=== PATIENT | male | born 1965 | race Caucasian/White ===

== ENCOUNTER 2019-11-06 06:52 | Emergency (ER) | payer OTHER, SELFPAY ==
[2019-11-06 06:57] VITALS: BP 105/61; PULSE 76; RESP 18; TEMP 36.7; O2SAT 100
--- NOTE | 2019-11-06 07:05 | ED.GENADUL_ITS ---
Discharge Plan Disposition Patient Disposition: HOME Condition: Good Discharge Details Chief Complaint: Nk/Back Pain Clinical Impression: Back pain Primary Care Provider: None,None ED Provider: Elías Reagan Home Meds and New Rx's Prescriptions: New cyclobenzaprine 10 mg tablet 10 mg PO TID Qty: 14 RF: 0 prednisone 50 MG tablet 50 mg PO DAILY Qty: 5 RF: 0 lidocaine [Lidoderm] 1 PATCH patch 1 patch Topical Q24H Qty: 4 RF: 0 Discharge Instructions Instructions: Back Pain (ED) Additional Instructions: At this time your signs and symptoms are clinically consistent with a back sprain. This can cause significant pain and take a fair bit of time to heal. I expect 1 to 2 months for potential resolution. In the meantime do not lift anything greater than 5 pounds for the next 2 weeks. Avoid any significant vigorous physical activity. Perform easy gentle regular activities at home without any significant bending or lifting. Please take the steroids as directed. You have been given a prescription for Lidoderm patch. If your insurance does not cover this you can get [id number] Lidoderm patches at 4% which are almost just as effective. Please take the Flexeril as directed but do not take it when driving or operating any vehicles or heavy machinery, swimming, taking long baths, or operating firearms. Please use a heating pad as often as possible on your back. Perform daily gentle stretches on your back. Please continue to take the Tylenol and Motrin. You can take 1000 mg of Tylenol every 6 hours and 600 mg of ibuprofen every 6 hours. If you notice any worsening of your symptoms, or any new symptoms such as vomiting, diarrhea, fever, chills, shortness of breath, chest pain, numbness or tingling in your groin or legs, weakness in your legs, loss of control for your bowels or bladder, or fainting , please return immediately to the emergency department for reevaluation. Please follow up with your primary care provider as soon as possible for reassessment and reevaluation. As always, it was a pleasure participating in your medical care today. Discharge Data Discharge Date/Time-TO BE ENTERED AT DEPARTURE: 11/06/19 08:10 Medical Decision Making 54-year-old male with a past medical history of previous Lyme disease presents today for evaluation of back pain. Patient states that 4 to 5 days ago he had been doing a significant amount of moving and lifting of various heavy o bjects, felt that he twisted lifted in a funny atypical fashion developed some mild right-sided back pain. In spite of taking Tylenol and Motrin his pain continued and gradually worsened, described as an ache which then radiated down to his right buttock and his right leg. He denies any significant numbness or tingling, but does admit to what he feels is mild weakness in his right lower extremity but he is still able to ambulate. He denies previous injury to his back but does admit to a history of previous left-sided back pain in the past. Patient denies any saddle anesthesia, numbness or tingling in the groin, change in sensation when wiping. Patient denies any change in sensation during sexual intercourse, difficulty achieving or maintaining an erection or ejaculation, bowel or bladder incontinence, leakage, or retention. Patient denies any significant weakness in the lower extremities, atypical falls or imbalance. Patient denies any IV or illicit drug use. Physical exam demonstrates notable right paraspinal muscle spasm with mild reproducible tenderness on palpation there. No midline tenderness whatsoever. Signs and symptoms are clinically inconsistent with cauda equina syndrome at this time, and clinically consistent with right-sided musculoskeletal spasm. At this time there is no indication for emergent imaging, I did discuss imaging options with the patient though, he too would like to hold off on any additional imaging. We will give steroid, Lidoderm patch, Toradol Flexeril. We will monitor closely expectant discharge. 7:41 AM Patient has had mild improvement of his symptoms, we will add Valium. Patient will be signed out to my colleague for recheck, otherwise patient continues to look clinically well, with no signs of acute cord compression, or signs or symptoms warranting emergent imaging. No indication for admission. Signs and symptoms at this time are clinically consistent with a musculoskeletal back strain. 8 AM Patient had complete resolution of his pain and is asking to go home. Repeat assessment continues to show no signs of cauda equina syndrome or other concerning etiologies. Signs and symptoms at this time clinically consistent with musculoskeletal back strain. Discussed red flags for which to return. I have extensively reviewed the treatment plan and discharge instructions with the patient. I have addressed all patient concerns at this time. The patient was made aware of what symptoms to monitor for that would warrant a return to the emergency department. Discussed the plan with the patient, they demonstrate jerilyn bal understanding and agreement with our assessment and plan at this time. HPI General Date/Time Provider Initiated Documentation: 11/06/19 06:53 . HPI Narrative: 54-year-old male with a past medical history of previous Lyme disease presents today for evaluation of back pain. Patient states that 4 to 5 days ago he had been doing a significant amount of moving and lifting of various heavy objects, felt that he twisted lifted in a funny atypical fashion developed some mild right-sided back pain. In spite of taking Tylenol and Motrin his pain continued and gradually worsened, described as an ache which then radiated down to his right buttock and his right leg. He denies any significant numbness or tingling, but does admit to what he feels is mild weakness in his right lower extremity but he is still able to ambulate. He denies previous injury to his back but does admit to a history of previous left-sided back pain in the past. Patient denies any saddle anesthesia, numbness or tingling in the groin, change in sensation when wiping. Patient denies any change in sensation during sexual intercourse, difficulty achieving or maintaining an erection or ejaculation, bowel or bladder incontinence, leakage, or retention. Patient denies any significant weakness in the lower extremities, atypical falls or imbalance. Patient denies any IV or illicit drug use. Related Data Home Medications Medication Instructions Recorded Confirmed cyclobenzaprine 10 mg PO TID #14 tab 11/06/19 lidocaine [Lidoderm] 1 patch TOPICAL Q24H #4 patch 11/06/19 prednisone 50 mg PO DAILY #5 tab 11/06/19 Previous Rx's Medication Instructions Recorded cyclobenzaprine 10 mg PO TID #14 tab 11/06/19 lidocaine [Lidoderm] 1 patch TOPICAL Q24H #4 patch 11/06/19 prednisone 50 mg PO DAILY #5 tab 11/06/19 Allergies Allergy/AdvReac Type Severity Reaction Status Date / Time No Known Allergies Allergy Unverified 11/06/19 07:06 General Stated Complaint: Nk/Back Pain DEON: 4 Review of Systems All systems reviewed & are unremarkable except as noted in HPI and below PFSH Social History Smoking/Tobacco Use Status: Never Alcohol Intake: never Drug use: Never Do you feel safe at home: Yes Do you feel safe in your relationship?: Yes Exam Narrative Exam Narrative: 1.Const: Well-nourished, Well-developed, appearing stated age 2.Eyes: PERRL, no conjunctival injection, and symmetrical lids. 3.ENT: Atraumatic external nose and ears. Moist MM. Neck: Symmetric, trachea midline, No thyromegaly. 4.CVS: +S1/S2, No murmurs or gallops. Peripheral pulses 2+ and equal in all extremities. Brisk capillary refill in all extremities. 5.RESP: Unlabored respiratory effort. Clear to auscultation bilaterally. No wheezes rales or rhonchi 6.GI: Soft, Nontender/Nondistended, No hepatosplenomegaly. No guarding or rebound. 7.MSK: Normocephalic/Atraumatic, Extremities w/o deformity or ttp No cyanosis or clubbing, Normal movement of all extremities. No midline tenderness to palpation over the CTLS spine. Notable right paraspinal spasm, with well associated rate lower lumbar paraspinal pain. Normal ROM in flexion, extension, side bend, and rotation. Patient has +5 out of 5 strength in the lower extremities in dorsiflexion and plantarflexion, knee flexion and extension, hip flexion and extension. The right hip is minimally less strong than the left in regards to hip flexion but both are still clear 5 out of 5. Normal strength for dorsiflexion and plantar flexion of the great toe bilaterally. There is +2 over 2 dorsalis pedis pulses bilaterally. There is normal sensation to the skin with light touch at the foot, knee, and hip. Normal saddle sensation. Good sensation over the deep sural nerve area bilaterally. Rectal exam demonstrates good rectal tone, good perirectal sensation. Reflexes are +2 over 4 in the patellar reflex bilaterally. 8.Skin: Warm, Dry. No rashes or lesions. 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 Sensation grossly intact, no focal neurologic deficits. 10.Psych: (AAO) x3. Appropriate mood and affect Course Vital Signs Vital signs: Vital Signs Temperature 36.7 C 11/06/19 06:57 Pulse 76 11/06/19 06:57 Respiratory Rate 18 11/06/19 06:57 Blood Pressure 105/61 11/06/19 06:57 Pulse Oximetry 100 11/06/19 06:57 Temperature 36.7 C 11/06/19 06:57 Temperature Source Temporal Artery Scan 11/06/19 06:57 Pulse 76 11/06/19 06:57 Respiratory Rate 18 11/06/19 06:57 Blood Pressure 105/61 11/06/19 06:57 Blood Pressure Position Sitting 11/06/19 06:57 Pulse Oximetry 100 11/06/19 06:57 Oxygen Delivery Method Room Air 11/06/19 06:57 Oxygen Flow Rate 0 11/06/19 06:57 Pain Level 8 11/06/19 06:57 Sign Out Sign Out Data: Sign Out Comment: Recheck at 815/820 after Valium administration Last updated by Elías Reagan DO at 11/06/19 07:42
[2019-11-06] MEDS: Lidocaine 5% Patch 1 PATCH TP (07:13)
[2019-11-06] MEDS: Ketorolac 30 MG/ML VIAL IM (07:13)
[2019-11-06] MEDS: Acetaminophen 500 MG TAB 1000 MG PO (07:14)
[2019-11-06] MEDS: predniSONE 20 MG TAB 60 MG PO (07:14)
[2019-11-06] MEDS: Cyclobenzaprine 10 MG TAB PO (07:14)
[2019-11-06] MEDS: diazePAM 10 MG/2 ML SYR IM (07:45)
== END 2019-11-06 08:10 | disposition home or self-care (01) ==
PROVIDERS: Emergency Provider Student in an Organized Health Care Education/Training Program
DX: S33.5XXA Sprain of ligaments of lumbar spine, initial encounter (principal); X50.0XXA Overexertion from strenuous movement or load, initial encounter
CPT/HCPCS: 96372; 99284; J1885; J3360; J7512

== ENCOUNTER 2019-11-17 11:33 | Emergency (ER) | payer OTHER, SELFPAY ==
[2019-11-17 11:37] VITALS: BP 107/67; PULSE 80; TEMP 36.5; O2SAT 100
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
[2019-11-17] MEDS: Ketorolac 60 MG/2 ML VIAL IM (12:22)
== END 2019-11-17 12:55 | disposition home or self-care (01) ==
PROVIDERS: Emergency Provider Physician Assistant
DX: M54.5 Low back pain (principal)
CPT/HCPCS: 96372; 99284; 99283; J1885

== ENCOUNTER 2020-12-07 01:58 | Outpatient (CLI) | payer MEDICARE, SELFPAY ==
[2020-12-07 13:26] LABS: HCT 39.3 % (40.0-50.0); HGB 13.3 g/dL (13.5-17.5); MCH 30.4 pg (27.0-33.0); MCHC 33.8 % (32.0-36.0); MCV 89.9 fL (80-95); Platelet Count 242 10^3/uL (130-400); RBC 4.37 10^6/uL (4.36-5.78); RDW 12.8 % (11.8-14.1); RDW-SD 42.5 fL; WBC 5.33 10^3/uL (4.4-10.8)
[2020-12-07 14:03] LABS: Magnesium 1.9 mg/dL (1.8-2.4)
[2020-12-07 14:36] LABS: ALT 32 U/L (16-63); AST 16 U/L (15-37); Albumin 4.1 g/dL (3.4-5.0); Alkaline Phosphatase 79 U/L (46-116); BUN 18 mg/dL (7-18); Bilirubin, Total 0.5 mg/dL (0.2-1.0); CREATININE 1.1 mg/dL (0.70-1.30); Calcium 9.1 mg/dL (8.5-10.1); Chloride 107 mmol/L (98-107); Ferritin 385 ng/mL (26-388); Glucose 96 mg/dL (74-106); Potassium 4.6 mmol/L (3.5-5.1); Sodium 142 mmol/L (136-145); TSH 0.45 uIU/mL (0.36-3.74); Vitamin B12 503 pg/mL (193-986)
[2020-12-07 14:52] LABS: C-Reactive Protein 0.28 mg/dL (0.0-0.3); FREE T4 0.73 ng/dL (0.76-1.46)
[2020-12-07 22:33] LABS: T3, Total 124 ng/dL (97-169)
[2020-12-09 00:58] LABS: Vitamin D 25 Total 44.7 ng/mL (30-100)
[2020-12-15 10:12] LABS: Testosterone, Free 7.73 ng/dL (3.87-14.7); Testosterone, Total 368 ng/dL (240-950)
== END 2020-12-07 01:59 | disposition home or self-care (01) ==
DX: F31.9 Bipolar disorder, unspecified (principal); F63.81 Intermittent explosive disorder; G31.84 Mild cognitive impairment of uncertain or unknown etiology
CPT/HCPCS: 36415; 80053; 82306; 84402; 84403; 85027; 82607; 82728; 83735; 84439; 84443; 84480; 86140

== ENCOUNTER 2020-12-12 08:36 | Emergency (ER) | payer MEDICARE, SELFPAY ==
[2020-12-12] VITALS (20 sets, daily range): BP systolic 113–134; BP diastolic 65–81; PULSE 56–81; RESP 8–19; TEMP 36.5; O2SAT 97–100
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
[2020-12-12] MEDS: Lidocaine 5% Patch 1 PATCH TP (09:25)
[2020-12-12] MEDS: oxyCODONE 5 MG TAB PO (09:25)
[2020-12-12 09:42] LABS: Abs Immature Grans 0.01 10^3/uL (0.0-0.06); Absolute Basophil Count 0.07 10^3/uL (0.0-0.2); Absolute Eosinophil Count 0.13 10^3/uL (0.0-0.7); Absolute Lymphocyte Count 1.52 10^3/uL (1.2-3.4); Absolute Monocyte Count 0.41 10^3/uL (0.1-0.8); Absolute Neutrophil Count 3.84 10^3/uL (1.2-6.7); Basophils % 1.2; Eosinophils % 2.2; HCT 41.7 % (40.0-50.0); Immature Grans % 0.2; Lymphocytes % 25.4; MCH 30.2 pg (27.0-33.0); MCHC 33.6 % (32.0-36.0); MCV 90.1 fL (80-95); MPV 9.2 fL (8.0-11.0); Monocytes % 6.9; Neutrophils % 64.1; Nucleated RBC 0 %; Platelet Count 267 10^3/uL (130-400); RBC 4.63 10^6/uL (4.36-5.78); RDW 12.7 % (11.8-14.1); WBC 5.98 10^3/uL (4.4-10.8)
[2020-12-12] MEDS: Omnipaque 350 MG/ML 100 ML BTL IJ (10:00)
[2020-12-12] MEDS: Normal Saline Flush 10 ML SYR IVP (10:01)
[2020-12-12 10:14] LABS: ALT 35 U/L (16-63); AST 22 U/L (15-37); Albumin 4.1 g/dL (3.4-5.0); Alkaline Phosphatase 84 U/L (46-116); Anion Gap 6.7 mmol/L (3-11); BUN 23 mg/dL (7-18); Bilirubin, Total 0.2 mg/dL (0.2-1.0); CO2 27.3 mmol/L (21.0-32.0); CREATININE 1.1 mg/dL (0.70-1.30); Calcium 9.1 mg/dL (8.5-10.1); Chloride 107 mmol/L (98-107); Glucose 106 mg/dL (74-106); Potassium 4.7 mmol/L (3.5-5.1); Sodium 141 mmol/L (136-145); Total Protein 7.6 g/dL (6.4-8.2)
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
== END 2020-12-12 10:41 | disposition home or self-care (01) ==
PROVIDERS: Emergency Provider Student in an Organized Health Care Education/Training Program
DX: R07.89 Other chest pain (principal); S22.22XA Fracture of body of sternum, initial encounter for closed fracture; V89.2XXA Person injured in unspecified motor-vehicle accident, traffic, initial encounter
CPT/HCPCS: 36415; 80053; 99284; 71260; 85025; J3490

== ENCOUNTER 2022-12-14 09:12 | Outpatient (CLI) | payer MEDICARE, SELFPAY ==
--- NOTE | 2022-12-14 08:45 | DI.RAD_ITS ---
Exam(s) XR WRIST LT COMPLETE EXAM: XR WRIST LT COMPLETE CLINICAL HISTORY: left wrist pain. TECHNIQUE: 2D digital imaging was performed of the left wrist. Four images were obtained. Scaphoid , PA, oblique and lateral views were obtained. COMPARISON: No exams were available for comparison FINDINGS: BONES: No acute fracture is present. No bony destructive lesion is seen. There is a bone island in th e distal scaphoid. JOINTS: The carpal bones are normally aligned. The joint spaces are well maintained. SOFT TISSUE: Normal. IMPRESSION: No acute abnormality. DATA REPOSITORY: RADIATION DOSE DELIVERED:
== END 2022-12-14 09:13 | disposition home or self-care (01) ==
LOC: DIORS 09:12
PROVIDERS: Referring Provider Physical Therapist; Visit Provider Physician Assistant
DX: M25.532 Pain in left wrist (principal); M65.4 Radial styloid tenosynovitis [de Quervain]
CPT/HCPCS: 99213; 73110

== ENCOUNTER → 2023-01-01 03:30 | Outpatient (CLI) | payer MEDICARE, SELFPAY ==
--- NOTE | 2023-01-01 08:10 | DI.MRI_ITS ---
Exam(s) MR UPPER JOINT LT WO EXAM: MR UPPER JOINT LT WO CLINICAL HISTORY: LT WRIST PAIN, M25.532. TECHNIQUE: Multiplanar multisequence MRI was performed. COMPARISON: 14 December 2022 FINDINGS: Exam somewhat limited by motion. BONES: There is no fracture or contusion pattern. Focal area of sclerosis in the navicular is consi stent with bone island. Degenerative changes lateral aspect of navicular with some marrow edema.. JOINTS: The radiocarpal joint is unremarkable. The carpal joints are unremarkable. Mild degenerativ e changes navicular trapezium joint. Mild dorsal tilt of the lunate TENDONS: Tendons appear intact throughout. No evidence of tear or surrounding fluid. MUSCLES: Unremarkable. MEDIAN NERVE: Unremarkable on this noncontrast examination. SOFT TISSUES: Unremarkable. TRIANGULAR FIBROCARTILAGE: Not well seen. IMPRESSION: Mild edema in the navicular. The findings could be degenerative. Area of sclerosis in the distal po le likely represents a bone island. No tendon or soft tissue abnormality. DATA REPOSITORY: CONTRAST MATERIAL: Noncontrast
== END ==
PROVIDERS: Visit Provider Student in an Organized Health Care Education/Training Program
DX: M25.532 Pain in left wrist (principal)
CPT/HCPCS: 73221

== ENCOUNTER → 2023-04-17 03:17 | Outpatient (CLI) | payer MEDICARE, SELFPAY ==
--- NOTE | 2023-04-17 09:10 | DI.CT_ITS ---
Exam(s) CT UPPER EXTREMITY LT WO EXAM: CT UPPER EXTREMITY LT WO CLINICAL HISTORY: PAIN LT WRIST,M25.532,BONE ISLAND,m89.8x9. TECHNIQUE: Imaging Protocol: Axial computed tomography images with coronal and sagittal reformatted images were created and reviewed. COMPARISON: CR XR WRIST LT COMPLETE from 12/14/2022 FINDINGS: Bones: The osseous structures and articular surfaces are intact. Bony alignment is satisfactory. N o cellulitic or osteomyelitic changes are identified. There is no evidence of joint space narrowing or cystic degeneration seen. There is a well-circumscribed sclerotic focus in the scaphoid most sugge stive of a benign lesion. This corresponds to the finding seen on the x-ray and MRI of the wrist pre viously. No other lytic or sclerotic lesions are seen in the bones. Soft Tissues: The visualized tendons and muscles appear grossly unremarkable. No soft tissue mass is appreciated. No focal fluid collection is seen to suggest an abscess. No muscular fatty atrophy is appreciated. IMPRESSION: 1. 6 mm well-circumscribed sclerotic focus in the scaphoid. No associated bony destruction or soft t issue mass is appreciated. This suggest a benign lesion. 2. Otherwise unremarkable examination of the wrist. No acute fracture or dislocation. RADIATION DOSE DELIVERED: 95.56mGy.cm Total DLP 95.56mGy.cm Total DLP DATA REPOSITORY: All CT scans at this facility are submitted to the National Radiology Data Registry (NRDR) Dose Index Registry (DIR) with the [employer] (ACR). RADIATION OPTIMIZATION: All CT scans at this facility use at least one of these dose optimization te chniques: automated exposure control; mA and/or kV adjustment per patient size (includes targeted exa ms where dose is matched to clinical indication); or iterative reconstruction.
== END ==
PROVIDERS: Visit Provider Student in an Organized Health Care Education/Training Program
DX: M89.8X8 Other specified disorders of bone, other site (principal)
CPT/HCPCS: 73200

== ENCOUNTER 2023-05-09 02:55 | Outpatient (CLI) | payer MEDICARE, SELFPAY ==
[2023-05-09 15:23] LABS: Abs Immature Grans 0.03 10^3/uL (0.0-0.06); Absolute Basophil Count 0.11 10^3/uL (0.0-0.2); Absolute Eosinophil Count 0.22 10^3/uL (0.0-0.7); Absolute Lymphocyte Count 2.37 10^3/uL (1.2-3.4); Absolute Monocyte Count 0.73 10^3/uL (0.1-0.8); Absolute Neutrophil Count 4.41 10^3/uL (1.2-6.7); Basophils % 1.4; Eosinophils % 2.8; HGB 13.6 g/dL (13.5-17.5); Immature Grans % 0.4; Lymphocytes % 30.1; MCH 29.8 pg (27.0-33.0); MCV 88 fL (80-95); MPV 9.3 fL (8.0-11.0); Monocytes % 9.3; Platelet Count 295 10^3/uL (130-400); RBC 4.56 10^6/uL (4.36-5.78); RDW 13.3 % (11.8-14.1); RDW-SD 42.9 fL; WBC 7.87 10^3/uL (4.4-10.8)
[2023-05-09 16:25] LABS: Lithium 0.3 mmol/l (0.6-1.2)
[2023-05-09 16:37] LABS: Anion Gap 12.7 mmol/L (3-11); BUN 20 mg/dL (7-18); CO2 22.3 mmol/L (21.0-32.0); Calcium 9.3 mg/dL (8.5-10.1); Chloride 108 mmol/L (98-107); Glucose 107 mg/dL (74-106); Potassium 4.2 mmol/L (3.5-5.1); Sodium 143 mmol/L (136-145); TSH (W/Ref FT4) 1.09 uIU/mL (0.36-3.74)
== END 2023-05-09 02:56 | disposition home or self-care (01) ==
DX: F31.9 Bipolar disorder, unspecified (principal); Z79.899 Other long term (current) drug therapy
CPT/HCPCS: 36415; 80048; 80178; 84443; 85025

== ENCOUNTER 2024-01-14 02:38 | Outpatient (CLI) | payer MEDICARE, SELFPAY ==
[2024-01-14 14:01] LABS: Abs Immature Grans 0.04 10^3/uL (0.0-0.06); Absolute Basophil Count 0.11 10^3/uL (0.0-0.2); Absolute Eosinophil Count 0.16 10^3/uL (0.0-0.7); Absolute Lymphocyte Count 2.14 10^3/uL (1.2-3.4); Absolute Monocyte Count 0.62 10^3/uL (0.1-0.8); Absolute Neutrophil Count 4.16 10^3/uL (1.2-6.7); Basophils % 1.5 %; Eosinophils % 2.2 %; HCT 40.8 % (40.0-50.0); HGB 13.5 g/dL (13.5-17.5); Immature Grans % 0.6 %; Lymphocytes % 29.6 %; MCHC 33.1 % (32.0-36.0); MCV 91 fL (80-95); MPV 9.3 fL (8.0-11.0); Monocytes % 8.6 %; Neutrophils % 57.5 %; Platelet Count 277 10^3/uL (130-400); RDW 13.4 % (11.8-14.1); RDW-SD 44.9 fL; WBC 7.23 10^3/uL (4.4-10.8)
[2024-01-14 14:59] LABS: Lithium 0.3 mmol/L (0.6-1.2)
[2024-01-14 15:13] LABS: Anion Gap 7.7 mmol/L (3-11); BUN 19 mg/dL (7-18); CO2 24.3 mmol/L (21.0-32.0); CREATININE 1.2 mg/dL (0.70-1.30); Chloride 108 mmol/L (98-107); Estimated GFR 69.66 (mL/min/1.73m2); Glucose 118 mg/dL (74-106); Potassium 3.9 mmol/L (3.5-5.1); Sodium 140 mmol/L (136-145); TSH (W/Ref FT4) 0.94 uIU/mL (0.36-3.74)
== END 2024-01-14 02:39 | disposition home or self-care (01) ==
PROVIDERS: Visit Provider Psychiatry & Neurology Psychiatry
DX: F31.9 Bipolar disorder, unspecified (principal); Z51.81 Encounter for therapeutic drug level monitoring
CPT/HCPCS: 36415; 80048; 80178; 84443; 85025

== ENCOUNTER 2024-12-17 09:18 | Emergency (ER) | payer MEDICARE, SELFPAY ==
[2024-12-17] VITALS (34 sets, daily range): BP systolic 123–150; BP diastolic 73–97; PULSE 66–103; RESP 10–31; TEMP 36.4; O2SAT 96–100
--- NOTE | 2024-12-17 09:15 | RT.EKG_ITS ---
APPROVED REPORT Exam: Resting ECG Reason for Exam: stroke Patient Location: E HR:76 bpm ECG Measurements Heart Rate 76 AXIS WV 156 P 78 QRSd 89 QRS 73 QT 387 T 45 QTc 436 Conclusion Sinus rhythm...normal P axis, V-rate 60- 99 Physician: No STEMI
[2024-12-17] MEDS: Normal Saline Flush 10 ML SYR IVP (09:23)
[2024-12-17] MEDS: Omnipaque 350 MG/ML 100 ML BTL IJ (09:24)
[2024-12-17] MEDS: Normal Saline - Diluent 50 ML VIAL IJ (09:24)
--- NOTE | 2024-12-17 09:29 | ED.GENADUL_ITS ---
Discharge Plan Disposition Patient Disposition: Transfer-Acute Inpatient Care Specific Acute Inpt Facility: [facility] Condition: Critical Discharge Details Clinical Impression: Stroke, Left-sided weakness Primary Care Provider: Unknown,Unknown ED Provider: Elías Reagan Home Meds and New Rx's Prescriptions: No Action mirtazapine 30 mg tablet 30 mg PO QHS lorazepam 1 mg tablet 1 mg PO BID Patient Comments: TAKE ONE TABLET BY MOUTH TWICE A DAY lithium carbonate 150 mg capsule 150 mg PO DAILY Patient Comments: TAKE ONE CAPSULE BY MOUTH EVERY DAY FOR MOOD HPI General Date/Time Provider Initiated Documentation: 12/17/24 09:29 . HPI Narrative: This is a 59-year-old male with no significant past medical history except for mood disorder, presents today for evaluation of stroke. Patient awoke at 740 5 to 8 AM. He got up and had been functioning normally per his . And then at 8:30 AM he began calling for her. When she went over he had complete left-sided deficit with difficulty speaking, facial droop on the left, and complete paralysis of the left upper and lower extremity. EMS was called, blood sugar was normal, he was brought to the ER for further assessment. By the time he arrived facial paralysis was slightly improved as well as his mild dysarthria. However the left-sided upper and lower extremity deficit continued unchanged. Patient does not have a history of stroke or heart attack in the past. He does not smoke. No other complaints at this time. No history of bleed or hemorrhage. No history of aneurysm. No chest pain or shortness of breath or falls or trauma. Related Data Home Medications ?Medication ?Instructions ?Recorded ?Confirmed mirtazapine 30 mg tablet 30 mg PO QHS 12/14/22 lithium carbonate 150 mg capsule 150 mg PO DAILY 12/1712/17/24 lorazepam 1 mg tablet 1 mg PO BID 12/17/24 5 Allergies Allergy/AdvReac Type Severity Reaction Status Date / Time No Known Allergies Allergy Unverified 12/17/24 09:39 General DEON: 3 Exam Narrative Exam Narrative: 1.Const: Well-nourished, Well-developed, appearing stated age 2.Eyes: PERRL, no conjunctival injection, and symmetrical lids. 3.ENT: Atraumatic external nose and ears. Moist MM. Neck: Symmetric, trachea midline, No thyromegaly. 4.CVS: +S1/S2, Peripheral pulses 2+ and equal in all extremities. Brisk capillary refill in all extremities. 5.RESP: Unlabored respiratory effort. Clear to auscultation bilaterally. No wheezes rales or rhonchi 6.GI: Soft, Nontender/Nondistended, No hepatosplenomegaly. No guarding or rebound. 7.MSK: Normocephalic/Atraumatic, Extremities w/o deformity or ttp No cyanosis or clubbing, Normal movement of all extremities 8.Skin: Warm, Dry. No rashes or lesions. 9.Neuro: automotive consultant II-XII grossly intact. Questionable minimal left-sided facial droop, normal relative symmetry for the brow. Slight flattening of the left nasolabial fold. Left upper and left lower extremity demonstrate complete paralysis with no movement whatsoever. Right upper and right lower extremity demonstrate normal movement, normal rapid alternating movement [id number] on the right, but obviously no movement on the left. Normal sensation to light touch and pinprick on the face arms and legs bilaterally with no asymmetry. No significant dysarthria or aphasia. No inattention. NIH stroke score is 11 secondary to 2 points for limb ataxia for the upper and lower left extremity, 4 points for the left leg and 4 points for the left arm. And 1 point for mild facial paralysis. 10.Psych: (AAO) x3. Appropriate mood and affect Medical Decision Making This is a 59-year-old male with no significant past medical history except for mood disorder, presents today for evaluation of stroke. Patient awoke at 740 5 to 8 AM. He got up and had been functioning normally per his . And then at 8:30 AM he began calling for her. When she went over he had complete left-sided deficit with difficulty speaking, facial droop on the left, and complete paralysis of the left upper and lower extremity. EMS was called, blood sugar was normal, he was brought to the ER for further assessment. By the time he arrived facial paralysis was slightly improved as well as his mild dysarthria. However the left-sided upper and lower extremity deficit continued unchanged. Patient does not have a history of stroke or heart attack in the past. He does not smoke. No other complaints at this time. No history of bleed or hemorrhage. No history of aneurysm. No chest pain or shortness of breath or falls or trauma. Physical exam demonstrates questionable minimal left-sided facial droop, normal relative symmetry for the brow. Slight flattening of the left nasolabial fold. Left upper and left lower extremity demonstrate complete paralysis with no movement whatsoever. Right upper and right lower extremity demonstrate normal movement, normal rapid alternating movement [id number] on the right, but obviously no movement on the left. Normal sensation to light touch and pinprick on the face arms and legs bilaterally with no asymmetry. No significant dysarthria or aphasia. No inattention. NIH stroke score is 11 secondary to 2 points for limb ataxia for the upper and lower left extremity, 4 points for the left leg and 4 points for the left arm. And 1 point for mild facial paralysis. 10.Psych: (AAO) x3. Appropriate mood and affect Signs and symptoms are notably concerning for an acute stroke. We will rule out hemorrhage versus ischemic pathology. Patient is a candidate for TNK. We will get a teleneuro consult, plan for TNK administration. I discussed risks and benefits we will plan for teleneuro and potential administration of TNK . 10:06 AM On reassessment patient symptoms have completely resolved within the last 4 minutes. He went from total left-sided paralysis to complete use of the left upper and lower extremity, continued normal sensation, and no facial droop or asymmetry. Patient feels much better. Patient is no longer a candidate for TNK, clearly continues to need imaging, potential MRI echo and carotid ultrasound. We are pending teleneuro evaluation at this time. 10:33 AM After complete resolution of symptoms symptoms then suddenly returned at around 10:30 AM, with near complete loss of strength of the upper and lower extremity on the left and facial droop. While it was not as severe as before, NIH stroke scale is still in 9 at this time. We had completed the initial call with teleneuro, however as symptoms returned we will try to get them back on their currently working to achieve this 10:43 AM Symptoms have again improved and NIH stroke score is now down to about a 3. Still waiting on teleneuro to reconnect. Patient is still a candidate for TNK 11:03 AM Symptoms certainly appear consistent with a stuttering stroke/TIA. Symptoms return, they resolve, however each time there is resolution it is not completely resolving and he is gradually transitioning to a persistent higher NIH stroke score during the improved time. Discussed the case multiple times with teleneurology , and at this time with the patient's persistent and recurring symptoms, he underwent the risks and benefits we do feel that TNK is indicated and appropriate. I had a very long discussion with the patient and family, we explicitly went through all the risks and benefits including , life-threatening bleed or permanent disability. Patient and family understand. They both consent for TNK and would like it to be done promptly. We will administer TNK at 0.25 mg/kg. Will contact [facility] for transfer. At time of administration of TNK patient's NIH stroke scale is 9. We did go through red flags risk factors and contraindications and patient and family deny any of these including life-threatening bleeding falls traumas or other. 11:40 AM TNK was given. Patient remained stable with some continued mild to moderate neurodeficits. Discussed the case with Dr. Bhavin Ludwig from [facility] neurology. She agrees with the assessment and plan. Patient will be transferred to [facility] for further management. Blood pressure remained stable, pressure 136/80. I have extensively reviewed the treatment plan with the patient. I have addressed all patient concerns at this time. I have also discussed the plan with the admitting physician and they agree with the current assessment and plan and have agreed to assume responsibility for the patient. All parties demonstrate verbal understanding and agreement with our assessment and plan at this time. The documentation in this chart was dictated using Postmaster dictation software. Please excuse any dictation errors. At time of transfer the patient was reassessed and continued to demonstrate No signs of acute respiratory distress requiring intubation, hemodynamic instability requiring pressor support, or rapidly declining mental status. FINDINGS: CT Head W/O and W: Ventricles and Extra axial spaces: Normal in size and morphology for the patient's age. Hemorrhage: None. Cerebral parenchyma: There is a subtle area of decreased attenuation in the right parietal lobe (series 8 images 18-24. This may represent small vessel ischemic disease but an acute infarct should also be considered. There are also areas of decreased attenuation in the white matter bilaterally suggestive of early small vessel ischemic disease. Midline shift: None. Brainstem/Cerebellum: Normal. Pituitary gland: Note is made of a partially empty sella. Calvarium: Normal. Visualized Paranasal sinuses/Mastoids: Clear. Soft Tissues: Unremarkable. Enhancement: Unremarkable. CTA Neck W: Common Carotid: Right: No dissection, occlusion or significant stenosis. There is minimal atherosclerotic calcification in the carotid bulb. Left: No dissection, occlusion or significant stenosis. External Carotid: Right: No occlusion or significant stenosis. Left: No occlusion or significant stenosis. There is minimal atherosclerotic calcification in the left external carotid artery. Internal Carotid: Right: No dissection, occlusion or significant stenosis. Left: No dissection, occlusion or significant stenosis. Vertebral Artery: Right: No dissection, occlusion or significant stenosis. Left: No dissection, occlusion or significant stenosis. Lung Apices: Normal. Bones: Within normal limits for the patient's age. Soft Tissues: Normal. Thyroid gland: Unremarkable. CTA Brain W: Internal Carotid Arteries: There is no evidence of an aneurysm, occlusion or significant stenosis. Anterior Cerebral Arteries: Right: No aneurysm, occlusion or significant stenosis. Left: No aneurysm, occlusion or significant stenosis. Middle Cerebral Arteries: Right: No aneurysm, occlusion or significant stenosis. Left: No aneurysm, occlusion or significant stenosis. Posterior Cerebral Arteries: Right: No aneurysm, occlusion or significant stenosis. Left: No aneurysm, occlusion or significant stenosis. Vertebral Arteries: Right: No aneurysm, occlusion or significant stenosis. Left: No aneurysm, occlusion or significant stenosis. Basilar Artery: No aneurysm, occlusion or significant stenosis. IMPRESSION: 1. No large vessel occlusion or significant stenosis on the CT angiography of the head. 2. Question of a subtle area of decreased attenuation in the right parietal lobe anteriorly. This may represent an acute infarct. A noncontrast MRI of the brain is recommended for further evaluation. 3. No occlusion or significant stenosis on the CT angiography of the neck. Critical Care Time Critical Care Time Critical Care Time: Yes Total Critical Care Time: 90 Attestation: Upon my evaluation, this patient had a high probability of imminent or life- threatening deterioration, which required my direct attention, intervention, and personal management. I have personally provided 90 minutes of critical care time exclusive of time spent on separately billable procedures. Time includes review of laboratory data, radiology results, discussion with consultants, and monitoring for potential decompensation. Interventions were performed as documented. PFSH All Active Problems (Updated 12/17/24 @ 11:06 by Elías Reagan DO) Left-sided weakness (Acute) Stroke (Chronic) Tenderness of anatomical snuffbox (Acute) De Quervain's tenosynovitis, left (Acute) Left wrist pain (Acute) Sternal fracture (Acute) Social History Smoking/Tobacco Use Status: Never Smoking risk assessment performed?: Yes Alcohol Intake: never Drug use: Never Substance use type: does not use Current gender identity: male Do you feel safe at home: Yes Do you feel safe in your relationship?: Yes
--- NOTE | 2024-12-17 09:35 | DI.CT_ITS ---
Exam(s) CT BRAIN NECK CTA EXAM: CT BRAIN NECK CTA CLINICAL HISTORY: eval for stroke (L sided weakness0. TECHNIQUE: Imaging Protocol: Axial CT angiography was performed with multi- slice acquisition and multi-planar and/or 3D reconstructions. CONTRAST MATERIAL: Intravenous: Omnipaque 350 contrast volume:70 mL COMPARISON: No exams were available for comparison FINDINGS: CT Head W/O and W: Ventricles and Extra axial spaces: Normal in size and morphology for the patient's age. Hemorrhage: None. Cerebral parenchyma: There is a subtle area of decreased attenuation in the right parietal lobe (series 8 images 18-24. This may represent small vessel ischemic disease but an acute infarct should also be considered. There are also areas of decreased attenuation in the white matter bilaterally suggestive of early small vessel ischemic disease. Midline shift: None. Brainstem/Cerebellum: Normal. Pituitary gland: Note is made of a partially empty sella. Calvarium: Normal. Visualized Paranasal sinuses/Mastoids: Clear. Soft Tissues: Unremarkable. Enhancement: Unremarkable. CTA Neck W: Common Carotid: Right: No dissection, occlusion or significant stenosis. There is minimal atherosclerotic calcification in the carotid bulb. Left: No dissection, occlusion or significant stenosis. External Carotid: Right: No occlusion or significant stenosis. Left: No occlusion or significant stenosis. There is minimal atherosclerotic calcification in the left external carotid artery. Internal Carotid: Right: No dissection, occlusion or significant stenosis. Left: No dissection, occlusion or significant stenosis. Vertebral Artery: Right: No dissection, occlusion or significant stenosis. Left: No dissection, occlusion or significant stenosis. Lung Apices: Normal. Bones: Within normal limits for the patient's age. Soft Tissues: Normal. Thyroid gland: Unremarkable. CTA Brain W: Internal Carotid Arteries: There is no evidence of an aneurysm, occlusion or significant stenosis. Anterior Cerebral Arteries: Right: No aneurysm, occlusion or significant stenosis. Left: No aneurysm, occlusion or significant stenosis. Middle Cerebral Arteries: Right: No aneurysm, occlusion or significant stenosis. Left: No aneurysm, occlusion or significant stenosis. Posterior Cerebral Arteries: Right: No aneurysm, occlusion or significant stenosis. Left: No aneurysm, occlusion or significant stenosis. Vertebral Arteries: Right: No aneurysm, occlusion or significant stenosis. Left: No aneurysm, occlusion or significant stenosis. Basilar Artery: No aneurysm, occlusion or significant stenosis. IMPRESSION: 1. No large vessel occlusion or significant stenosis on the CT angiography of the head. 2. Question of a subtle area of decreased attenuation in the right parietal lobe anteriorly. This may represent an acute infarct. A noncontrast MRI of the brain is recommended for further evaluation. 3. No occlusion or significant stenosis on the CT angiography of the neck. RADIATION DOSE DELIVERED: 2,195.77mGy.cm Total DLP DATA REPOSITORY: All CT scans at this facility are submitted to the National Radiology Data Registry (NRDR) Dose Index Registry (DIR) with the [employer] (ACR). RADIATION OPTIMIZATION: All CT scans at this facility use at least one of these dose optimization techniques: automated exposure control; mA and/or kV adjustment per patient size (includes targeted exams where dose is matched to clinical indication); or iterative reconstruction.
[2024-12-17 09:55] LABS: Abs Immature Grans 0.03 10^3/uL (0.0-0.06); HCT 43.4 % (40.0-50.0); HGB 14.8 g/dL (13.5-17.5); Immature Grans % 0.4 %; MCH 29.7 pg (27.0-33.0); MCHC 34.1 % (32.0-36.0); MCV 87 fL (80-95); MPV 9.3 fL (8.0-11.0); Platelet Count 259 10^3/uL (130-400); RBC 4.99 10^6/uL (4.36-5.78); RDW 13.1 % (11.8-14.1); RDW-SD 41.4 fL; WBC 7.67 10^3/uL (4.4-10.8)
[2024-12-17 10:14] LABS: Lithium < 0.2 mmol/L (0.6-1.2)
[2024-12-17 10:21] LABS: INR 1.0 (0.9-1.1); PTT Activated 18.9 sec (20.6-30.2); Prothrombin Time 10.3 sec (9.1-11.1)
[2024-12-17 10:47] LABS: ALT 50 U/L (16-63); AST 14 U/L (15-37); Albumin 3.9 g/dL (3.4-5.0); Alkaline Phosphatase 84 U/L (46-116); Anion Gap 7.9 mmol/L (3-11); BUN 15 mg/dL (7-18); Bilirubin, Total 0.5 mg/dL (0.2-1.0); CO2 26.1 mmol/L (21.0-32.0); Calcium 9.3 mg/dL (8.5-10.1); Chloride 105 mmol/L (98-107); Estimated GFR 86.16 (mL/min/1.73m2); Glucose 109 mg/dL (74-106); Potassium 4.6 mmol/L (3.5-5.1); Sodium 139 mmol/L (136-145); TSH (W/Ref FT4) 0.76 uIU/mL (0.36-3.74); Total Protein 7.4 g/dL (6.4-8.2); Troponin I 8 ng/L (<or=76)
[2024-12-17] MEDS: Tenecteplase 50 MG KIT 21 MG IVP (11:05)
--- NOTE | 2024-12-17 11:29 | NUR.NOTE ---
Nursing Note: PT arrived to this department at 0920 via EMS with left side weakness in both arms and legs with a left facial droop and slight speech change. PT transported to for CT scan as ordered. @ 1004 PT had change of condition by a complete use of left arm and leg, speech back to baseline and smile symmetrical. @1030 Pt had sudden return of loss of strgnth in left arm and leg. @1043 symptoms have improved. PT metal status baseline at this time AOx4 talking with .
[2024-12-17 11:40] LABS: Troponin I 7 ng/L (<or=76)
--- NOTE | 2024-12-17 12:17 | NUR.NOTE ---
Nursing Note: at this time PT AOx4 talking with . says physical deficits still come and go
--- NOTE | 2024-12-17 13:15 | DI.CT_ITS ---
Exam(s) CT HEAD - STROKE PROTOCOL EXAM: CT HEAD - STROKE PROTOCOL CLINICAL HISTORY: worsening speech. TECHNIQUE: Imaging Protocol: Axial computed tomography images with coronal and sagittal reformatted images were created and reviewed COMPARISON: CT CT BRAIN NECK CTA from 12/17/2024 FINDINGS: Ventricles and Extra axial spaces: Normal in size and morphology for the patient's age. Hemorrhage: None. Cerebral parenchyma: There has been no significant change in appearance of the brain compared to the prior examination. There again seen areas of decreased attenuation in the white matter. No new mass effect is identified. Midline shift: None. Brainstem/Cerebellum: Normal. Calvarium: Normal. Visualized Paranasal sinuses/Mastoids: Clear. Soft Tissues: Unremarkable. IMPRESSION: There has been no significant interval change in appearance of the brain compared to the examination from earlier in the day. RADIATION DOSE DELIVERED: 876.19mGy.cm Total DLP DATA REPOSITORY: All CT scans at this facility are submitted to the National Radiology Data Registry (NRDR) Dose Index Registry (DIR) with the [employer] (ACR). RADIATION OPTIMIZATION: All CT scans at this facility use at least one of these dose optimization techniques: automated exposure control; mA and/or kV adjustment per patient size (includes targeted exams where dose is matched to clinical indication); or iterative reconstruction.
[2024-12-17 13:38] LABS: Troponin I 8 ng/L (<or=76)
--- NOTE | 2024-12-17 14:23 | W.EDPROG ---
Date of service: 12/17/24 Time of Service: 14:24 Medical Decision Making At time of disposition to development patient continued to have left-sided weakness, and also had slight increase in slurring of speech. He also became tearful, which may have been related to the stroke, or the pressure of the situation. We did get a repeat CT scan to evaluate for bleed post TNK. Repeat CT scan negative for any bleed or acute process. FINDINGS: Ventricles and Extra axial spaces: Normal in size and morphology for the patient's age. Hemorrhage: None. Cerebral parenchyma: There has been no significant change in appearance of the brain compared to the prior examination. There again seen areas of decreased attenuation in the white matter. No new mass effect is identified. Midline shift: None. Brainstem/Cerebellum: Normal. Calvarium: Normal. Visualized Paranasal sinuses/Mastoids: Clear. Soft Tissues: Unremarkable. IMPRESSION: There has been no significant interval change in appearance of the brain compared to the examination from earlier in the day. Discharge Plan Disposition Patient Disposition: Transfer-Acute Inpatient Care Specific Acute In Facility: [facility] Condition: Critical Discharge Details Clinical Impression: Stroke, Left-sided weakness Primary Care Provider: Unknown,Unknown ED Provider: Elías Reagan Home Meds and New Rx's Prescriptions: No Action mirtazapine 30 mg tablet 30 mg PO QHS lorazepam 1 mg tablet 1 mg PO BID Patient Comments: TAKE ONE TABLET BY MOUTH TWICE A DAY lithium carbonate 150 mg capsule 150 mg PO DAILY Patient Comments: TAKE ONE CAPSULE BY MOUTH EVERY DAY FOR MOOD
== END 2024-12-17 17:33 | disposition short-term general hospital (02) ==
PROVIDERS: Emergency Provider Student in an Organized Health Care Education/Training Program
DX: I63.9 Cerebral infarction, unspecified (principal); R29.710 NIHSS score 10
CPT/HCPCS: 00123; 36415; 70496; 70498; 80053; 82962; 93005; 96374; 99291; 70450; 80178; 80320; 84443; 84484; 85025; 85610; 85730; 93010; J3101; J3490